=== PATIENT | female | born 1990 | race Caucasian/White ===

== ENCOUNTER → 2017-02-15 | Outpatient (CLI) | payer MEDICAID ==
[~2017-02-15] MED LIST: COLACE-DPS100 MG PO; LAN-O-SOOTHE7 GM TP; MOTRIN-DPS800 MG PO; NIPPLECREAM TP; PRENATAL VITAM1 EAC6 PO; TUCKS1 EACH TP; TYLENOL EXTRA500 M1 PO
== END | disposition home or self-care (01) ==
LOC: RAD.S 16:28
DX: O36.5920 Maternal care for other known or suspected poor fetal growth, second trimester, not applicable or unspecified (principal); Z3A.21 21 weeks gestation of pregnancy

== ENCOUNTER 2017-04-14 15:20 | Outpatient (CLI) | payer MEDICAID ==
--- NOTE | 2017-04-18 19:48 | HP ---
ADMIT: 04/14/2017 RM/LOC: [facility] MR#: [id number] [facility] [address] [place], [place] [id number] MIRANDA MILAN [address] [place] [address] History and Physical SEX: F AGE: 26 : 1990 DATE OF SERVICE: 04/14/2017 CHIEF COMPLAINT: Contractions. HISTORY OF PRESENT ILLNESS: Miranda is a very pleasant 26-year-old, 2, para 1, with a current intrauterine at 29 weeks and 6/7 days, who follows with Dr. Jon Ellison. She states that since Tuesday, she has been having intermittent contractions approximately 3-4 every hour. These have progressed a little bit today and therefore, she called in to the clinic. She was instructed by Dr. Vick Ellison to go over to Labor and Delivery for a nonstress test. She denies any leakage of fluid. No fevers or chills. No other major complaints. The patient since has been over here has had a reassuring strip. She did have a cervical length which was over 5 cm, but did have some funneling and funneled to about 3.4 cm. No decreased movement. No other major complaints. No history of delivery with her previous . PAST MEDICAL HISTORY: Benign. MEDICATIONS: vitamin. ALLERGIES: NO KNOWN DRUG ALLERGIES. SOCIAL HISTORY: Noncontributory. No alcohol, drug, or tobacco. Father of baby involved, at bedside. FAMILY HISTORY: Noncontributory. REVIEW OF SYSTEMS: Per HPI, otherwise negative. PHYSICAL EXAMINATION: VITAL SIGNS: Within normal limits and stable. She is afebrile. GENERAL: Alert and oriented x3. Does not appear in acute distress. HEENT: Pupils equal, round, and reactive. Extraocular muscles are intact. Throat clear. Trachea midline. HEART: Regular rate and rhythm. No murmurs, rubs, or gallops. LUNGS: Clear to auscultation. ABDOMEN: Gravid. Tocometer shows contractions very infrequently. heart tones category I. Vaginal exam shows normal vaginal mucosa. No significant discharge in the vaginal vault. Cervix was closed. FFN obtained. Wet prep obtained. NEUROLOGICAL: Intact. No focal deficits. EXTREMITIES: Without any significant edema. LABS: FFN was negative. UA was within normal limits. IMAGING: Cervical length 3.4 cm. ASSESSMENT AND PLAN: This is a 26-year-old female with; ADMIT: 04/14/2017 RM/LOC: [facility] MR#: [id number] [id number] MIRANDA MILAN [address] [place] [address] History and Physical SEX: F AGE: 26 : 1990 1. Intrauterine at 29 weeks and 6/7 days. 2. premature contractions, without evidence of labor. 3. Negative FFN. PLAN: Discussed results with the patient. Recommended that she continue to push fluids. Take tomorrow off from work. May be able to return on Tuesday. Follow up with Dr. Orlando or myself tomorrow if needed and continues to have problems. At this point, no evidence of labor. No evidence of rupture of membranes. Fetus appears reactive and overall well. Reassurance given to the patient. Precautions discussed as well including increased intensity in contractions, to return to Labor and Delivery or if any other concerns. Eric Zhang MD/ jonathon JOB #: [id number] CC: Vick Ellison MD, Attending Physician Vick Ellison MD, Family Physician
[2017-06-15] MEDS ORDERED: MOTRIN-DPS800 MG PO (15:16)
[2017-06-15] MEDS ORDERED: PRENATAL VITAM1 EAC6 PO (15:16)
[2017-06-15] MEDS ORDERED: TUCKS1 EACH TP (15:17)
[2017-06-15] MEDS ORDERED: TYLENOL EXTRA500 M1 PO (15:17)
[2017-06-15] MEDS ORDERED: LAN-O-SOOTHE7 GM TP (15:17)
[2017-06-15] MEDS ORDERED: NIPPLECREAM TP (15:17)
[2017-06-15] MEDS ORDERED: COLACE-DPS100 MG PO (15:18)
== END 2017-04-14 19:49 | disposition home or self-care (01) ==
LOC: 2LDRP 15:20 → BC 15:20 → EDSTATUS 18:05 → BC 19:49
DX: O60.03 Preterm labor without delivery, third trimester (principal); Z3A.29 29 weeks gestation of pregnancy

== ENCOUNTER → 2017-04-26 | Outpatient (CLI) | payer MEDICAID | END | disposition home or self-care (01) | LOC: RAD.S 16:28 | DX: O36.5930 Maternal care for other known or suspected poor fetal growth, third trimester, not applicable or unspecified (principal); Z3A.32 32 weeks gestation of pregnancy ==